=== PATIENT | male | born 1960 | race African-American/Black ===

== ENCOUNTER 2019-02-18 13:53 | Emergency (ER) | payer OTHER ==
[~2019-02-18] VITALS: Ht 167.6 cm; Wt 63.6 kg
[~2019-02-18 13:53] MED LIST: ALBU8HFA IH; CIP250 PO; FLUT1DIS3 IH; OMEP20TA2 PO; PROM5SYR2 PO
[2019-02-18] MEDS ORDERED: IBUPROFEN 400 MG TABLET PO ONE (15:00)
[2019-02-18] MEDS ORDERED: AMOX TR/POT CLAV 875 MG/125 MG TABLET PO ONE (15:00)
[2019-02-18 15:35] VITALS: BP 128/69
== END 2019-02-18 15:52 | disposition home or self-care (01) ==
LOC: EMS 13:55
DX: H72.92 Unspecified perforation of tympanic membrane, left ear (principal); H66.92 Otitis media, unspecified, left ear; I10 Essential (primary) hypertension

== ENCOUNTER 2019-11-09 06:09 | Day surgery (SDC) | payer OTHER ==
[~2019-11-09] VITALS: Ht 160 cm; Wt 63.6 kg
[~2019-11-09 06:09] MED LIST changes: -CIP250 PO; -PROM5SYR2 PO; +SODIUM CHLORIDE 0.9% 1,000 ML ONE
[2019-11-09] MEDS ORDERED: LIDOCAINE 2% 30 ML JELLY TP ONE (06:10)
[2019-11-09] MEDS ORDERED: ALBUTEROL SULFATE 2.5 MG/0.5 ML NEB SOLUTION NEB ONE (06:10)
[2019-11-09] MEDS ORDERED: BENZOCAINE 20% 50 MCG/SPRAY 57 GM TP ONE (06:10)
[2019-11-09] MEDS ORDERED: LIDOCAINE 4% 50 ML SOLUTION TP ONE (06:10)
[2019-11-09] MEDS ORDERED: SULF1TAB41 PO (06:51)
[2019-11-09] MEDS ORDERED: SODIUM CHLORIDE 0.9% 1,000 ML IV ONE (07:00)
[2019-11-09] MEDS ORDERED: MIDAZOLAM HCL 2 MG/2 ML VIAL ONE (07:55)
[2019-11-09] MEDS ORDERED: FentaNYL CITRATE-PF 100 MCG/2 ML VIAL ONE (07:56)
[2019-11-09] MEDS ORDERED: MethylPREDNISolone SOD SUCC 125 MG/2 ML VIAL ONE (08:56)
[2019-11-09] MEDS ORDERED: MethylPREDNISolone SOD SUCC 125 MG/2 ML VIAL IVP ONE (09:30)
[2019-11-09] MEDS ORDERED: OXYGEN THERAPY IH SCH (20:00)
== END 2019-11-09 10:30 | disposition home or self-care (01) ==
LOC: SURGERY 06:09
PROVIDERS: ATTEND Internal Medicine Critical Care Medicine
DX: J38.4 Edema of larynx (principal); B37.0 Candidal stomatitis; Z20.828 Contact with and (suspected) exposure to other viral communicable diseases; Z79.899 Other long term (current) drug therapy; H54.8 Legal blindness, as defined in USA
CPT/HCPCS: 31623; 31624; 71045; 87015; 87070; 87077; 87101; 87186; 87205; 87206; 87220; 87635; 88108; 88312; J2250; J2930; J3010; J7030; J7613; Z7610

== ENCOUNTER 2021-07-15 05:38 | Day surgery (SDC) | payer OTHER ==
[~2021-07-15] VITALS: Ht 172.7 cm; Wt 51.8 kg
[~2021-07-15 05:38] MED LIST changes: -ALBU8HFA IH; -FLUT1DIS3 IH; -SODIUM CHLORIDE 0.9% 1,000 ML ONE; +SULF1TAB41 PO
[2021-07-15] MEDS ORDERED: LIDOCAINE 2% 30 ML JELLY TP ONE (05:39)
[2021-07-15] MEDS ORDERED: LIDOCAINE 4% 50 ML SOLUTION TP ONE (05:39)
[2021-07-15] MEDS ORDERED: BENZOCAINE 20% 50 MCG/SPRAY 57 GM TP ONE (05:39)
[2021-07-15 06:17] LABS: COVID AG,FIA SOURCE NASAL SWAB
[2021-07-15] MEDS ORDERED: SODIUM CHLORIDE 0.9% 1,000 ML ONE (06:41)
[2021-07-15] MEDS ORDERED: SODIUM CHLORIDE 0.9% 1,000 ML IV ONE (07:00)
[2021-07-15] MEDS ORDERED: MIDAZOLAM HCL 5 MG/ML VIAL ONE (08:12)
[2021-07-15] MEDS ORDERED: FentaNYL CITRATE PF 100 MCG/2 ML VIAL ONE (08:12)
[2021-07-15] MEDS ORDERED: MethylPREDNISolone SOD SUCC 125 MG/2 ML VIAL IVP ONE (09:00)
[2021-07-15] MEDS ORDERED: MethylPREDNISolone SOD SUCC 125 MG/2 ML VIAL ONE (09:46)
[2021-07-15] MEDS ORDERED: PROMETHAZINE HCL/CODEINE 6.25-10MG/5ML SYRUP UDCUP PO ONE (11:30)
[2021-07-15] MEDS ORDERED: OXYGEN THERAPY IH SCH (20:00)
== END 2021-07-15 12:20 | disposition home or self-care (01) ==
LOC: SURGERY 05:38
PROVIDERS: ATTEND Internal Medicine Critical Care Medicine
DX: J38.4 Edema of larynx (principal); B37.0 Candidal stomatitis; Z79.899 Other long term (current) drug therapy
CPT/HCPCS: 31623; 31624; 71045; 87015; 87070; 87101; 87206; 87220; 87426; 88112; 88184; 88185; 88305; 88312; C9803; J2250; J2930; J3010; J7030; Z7610

== ENCOUNTER 2023-02-16 05:49 | Day surgery (SDC) | payer OTHER ==
[~2023-02-16] VITALS: Ht 167.6 cm; Wt 51.3 kg
[~2023-02-16 05:49] MED LIST changes: +ALBU18HF12 PO; +BUDE10.7 IH; +CARB1TAB35 PO; +FAMO20TA8 PO; +IPRA3AMP24 NEB; +MONT-40 PO; -OMEP20TA2 PO; -SULF1TAB41 PO
[2023-02-16] MEDS ORDERED: BENZOCAINE 20% 50 MCG/SPRAY 57 GM TP ONE (05:50)
[2023-02-16] MEDS ORDERED: ALBUTEROL SULFATE 2.5 MG/0.5 ML NEB SOLUTION NEB ONE (05:50)
[2023-02-16] MEDS ORDERED: LIDOCAINE 4% 50 ML SOLUTION TP ONE (05:50)
[2023-02-16] MEDS ORDERED: LIDOCAINE 2% 11 ML JELLY TP ONE (05:50)
[2023-02-16] MEDS ORDERED: HEPARIN SODIUM,PORCINE 1,000 UNITS/ML VIAL IVP ONE (05:50)
[2023-02-16] MEDS ORDERED: SODIUM CHLORIDE 0.9% 1,000 ML ONE (07:12)
[2023-02-16] MEDS ORDERED: SODIUM CHLORIDE 0.9% 1,000 ML IV ONE (08:00)
[2023-02-16] MEDS ORDERED: MIDAZOLAM HCL 2 MG/2 ML VIAL ONE (08:30)
[2023-02-16] MEDS ORDERED: FentaNYL CITRATE PF 100 MCG/2 ML VIAL ONE (08:30)
[2023-02-16] MEDS ORDERED: MethylPREDNISolone SOD SUCC 125 MG/2 ML VIAL IVP ONE (09:00)
[2023-02-16] MEDS ORDERED: MethylPREDNISolone SOD SUCC 125 MG/2 ML VIAL ONE (09:05)
[2023-02-16 09:10] VITALS: PULSE 63; RESP 18; O2SAT 97
== END 2023-02-16 12:50 | disposition home or self-care (01) ==
LOC: SURGERY 05:49
PROVIDERS: ATTEND Internal Medicine Critical Care Medicine
DX: R05.3 Chronic cough (principal); J98.09 Other diseases of bronchus, not elsewhere classified; R91.1 Solitary pulmonary nodule; J98.8 Other specified respiratory disorders; Z79.899 Other long term (current) drug therapy
CPT/HCPCS: 31623; 87206; 87101; 87220; 87070; 87186; 31624; 71045; 87015; J3010; J2250; J2930; Q9967; J7030; 88108; 88305; J1644; J7613; Z7610